=== PATIENT | male | born 1985 | race Caucasian/White ===

== ENCOUNTER 2016-11-09 17:17 | Emergency (ER) | payer MEDICAID ==
[~2016-11-09] VITALS: Wt 75.0 kg
[2016-11-09] MEDS ORDERED: ACETAMINOPHEN 500 MG TAB PO STA (18:26)
[2016-11-09] MEDS ORDERED: DIPHTH/TET/ACEL PERTUSS (ADULT) 0.5 ML VIAL IM* ONE (18:30)
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
[2016-11-09] MEDS ORDERED: ACET500C5 PO (20:15)
[2016-11-09] MEDS ORDERED: LIDOCAINE 1% (MDV) 20 ML INJ SC ONE (20:30)
== END 2016-11-09 21:31 | disposition home or self-care (01) ==
LOC: FTE 17:17
DX: S09.93XA Unspecified injury of face, initial encounter (principal); S02.2XXA Fracture of nasal bones, initial encounter for closed fracture; Y04.8XXA Assault by other bodily force, initial encounter; Y92.9 Unspecified place or not applicable; Z23 Encounter for immunization
CPT/HCPCS: 12011; 70450; 70486; 73000; 90471; 90715; Z7502; Z7610